=== PATIENT | female | born 1940 | race Caucasian/White ===

== ENCOUNTER 2021-04-18 11:59 | Inpatient (IN) | payer OTHER, SELFPAY ==
[~2021-04-18] VITALS: Ht 147.3 cm; Wt 39.9 kg
--- NOTE | 2021-04-18 11:59 | NUR ---
1150 BIBA ALS TO ER BED 10
--- NOTE | 2021-04-18 12:00 | NUR ---
80 Y/O F BIBA FROM HOME, PT A&OX4 STATES THAT SHE HAS BEEN HAVING AN INCREASE OF SOB, ANXIETY AND DYSPNEA FOR 3 DAYS. ALSO C/O LACK OF APPETITE AND STATES SHE HAS NOT BEEN ABLE TO EAT FOR 1 WEEK. ON SCENE, PT WAS 90% ON 4 L NC, [facility] SWITCHED TO CPAP AND GAVE ATROVENT BREATHING TX. PT REPORTS SOME RELIEF AFTER TX. DENIES SYCNOPE, FALLS, HEAD/NECK INJURIES, DYSURIA, N/V/D, ABD PAIN, HEMATURIA OR ANYONE SICK IN HOUSEHOLD AT THIS TIME. ON BIPAP FIO2 30% O2 SATURATION AT 95%. PMH: EMPHYSEMA, HOME OXYGEN 2L ALLERGY: DENIES
[2021-04-18 12:02] VITALS: BP 128/58
[2021-04-18] MEDS ORDERED: methylPREDNISolone SS 40 MG in WATER STERILE 1 ML IV ONE (12:05)
[2021-04-18] MEDS ORDERED: NACL 0.9% 1,000 ML IV ONE (12:05)
[2021-04-18] MEDS ORDERED: ALBUTEROL SULFATE/IPRATROPIU 3 ML SOL IH ONE (12:05)
[2021-04-18 12:06] VITALS: BP 121/63
[2021-04-18] MEDS ORDERED: WATER STERILE 10 ML MC ONE (12:09)
[2021-04-18] MEDS ORDERED: methylPREDNISolone SS 40 MG/ML VIAL ONE (12:09)
--- NOTE | 2021-04-18 12:11 | NUR ---
PT CAME IN BY AMBULANCE ON BIPAP. PLACED PT ON BIPAP WITH CHARTED SETTINGS. SKIN INTACT. PT AWAKE AND ALERT. PT IS MILD DISTRESS AND SOB. MD ROMAN AT BEDSIDE. BIPAP CONNECTED TO RED OUTLET. ALARMS AUDIBLE. AMBU BAG AT BEDSIDE. WILL CONTINUE TO MONITOR PATIENT.
[2021-04-18 12:18] LABS: BASOPHILS % (AUTO) 0.4 % (0.0-2.0); EOSINOPHILS % (AUTO) 0.2 % (0.0-4.0); HEMATOCRIT 36.6 % (36-48); HEMOGLOBIN 12.1 g/dL (12.0-16.0); LYMPHOCYTES # (AUTO) 0.7 K/uL (2.5-16.5); LYMPHOCYTES % (AUTO) 7.2 % (20.5-51.1); MEAN CORPUSCULAR HEMOGLOBIN 29 pg (27-31); MEAN CORPUSCULAR HGB CONC 33 g/dL (33-37); MEAN CORPUSCULAR VOLUME 88.8 fL (80-94); MONOCYTES # (AUTO) 0.5 K/uL (0.8-1.0); MONOCYTES % (AUTO) 5.3 % (1.7-9.3); NEUTROPHILS # (AUTO) 8.7 K/uL (1.8-7.7); NEUTROPHILS % (AUTO) 86.9 % (42.2-75.2); PLATELET COUNT (AUTO) 576 K/uL (140-450); RED BLOOD CELL COUNT(AUTO) 4.12 MIL/uL (4.20-5.40); RED CELL DISTRIBUTION WIDTH 14.2 % (11.6-13.7)
--- NOTE | 2021-04-18 12:22 | NUR ---
RT AT BEDSIDE
[2021-04-18 12:32] LABS: ANION GAP 11.6 (8-16); CARBON DIOXIDE 31.8 mmol/L (21-32); CHLORIDE 88 mmol/L (98-107); CREATININE 0.9 mg/dL (0.6-1.3); GLUCOSE 122 mg/dL (74-106); POTASSIUM 4.4 mmol/L (3.5-5.1); SODIUM SERUM 127 mmol/L (136-145); UREA NITROGEN, BLOOD 13 mg/dL (7-18)
--- NOTE | 2021-04-18 12:33 | NUR ---
PT PLACED ON BEDPAN
--- NOTE | 2021-04-18 12:41 | NUR ---
XRAY AT BEDSIDE
--- NOTE | 2021-04-18 13:00 | NUR ---
PT'S ELINOR AGUILAR AT BEDSIDE
--- NOTE | 2021-04-18 13:00 | NUR ---
# 16 FR Urinary catheter inserted utilizing sterile technique. Immediate return of 30 ml YELLOW urine noted. Urine sample collected and sent to lab. Pt tolerated procedure WELL.
[2021-04-18] MEDS ORDERED: cefTRIAXone 1,000 MG VIAL ONE (13:31)
[2021-04-18 13:40] LABS: APPEARANCE,URINE CLEAR (CLEAR); BILIRUBIN,URINE NEGATIVE (NEGATIVE); BLOOD, URINE NEGATIVE (NEGATIVE); COLOR,URINE YELLOW (YELLOW); LEUKOCYTE ESTERASE ,URINE NEGATIVE (NEGATIVE); NITRITE, URINE NEGATIVE (NEGATIVE); UGLUCOSE NEGATIVE (NEGATIVE)
[2021-04-18] MEDS ORDERED: PRAV20TA5 PO (13:43)
[2021-04-18] MEDS ORDERED: ALEN70TA85 PO (13:43)
[2021-04-18] MEDS ORDERED: HYDR-3298 PO (13:43)
[2021-04-18] MEDS ORDERED: CHLO1CAP PO (13:43)
--- NOTE | 2021-04-18 14:32 | NUR ---
PT'S JENNI FLORES AT BEDSIDE
--- NOTE | 2021-04-18 14:32 | NUR ---
pt using bedside commode
--- NOTE | 2021-04-18 16:20 | NUR ---
PT'S ELINOR LANGLEY AT BEDSIDE
--- NOTE | 2021-04-18 16:30 | NUR ---
PT USING BEDSIDE COMMODE
[2021-04-18] MEDS ORDERED: ACETAMINOPHEN EXTRA STRENGTH 500 MG TAB PO SCH (17:40)
--- NOTE | 2021-04-18 17:40 | NUR ---
PT STATING BACK PAIN, REQUESTING FOR TYLENOL. WILL ADMINISTER TYLENOL PER DR LUNDBERG.
[2021-04-18] MEDS ORDERED: HYDROcodone/APAP 5/325 MG 1 TAB TAB PO PRN (17:45)
[2021-04-18] MEDS ORDERED: ACETAMINOPHEN 325 MG TAB PO PRN (17:45)
[2021-04-18] MEDS ORDERED: POTASSIUM CHLORIDE 10 MEQ TABER PO PRN (17:45)
[2021-04-18] MEDS ORDERED: MAG SULF 2000 MG/WATER PREMIX 50 ML IV PRN (17:45)
[2021-04-18] MEDS: AZITHROMYCIN 500 MG in DEXTROSE 5% 250 ML IV SCH (17:45)
[2021-04-18] MEDS ORDERED: MORPHINE SULFATE 4 MG/ML SYR IVP PRN (17:45)
[2021-04-18] MEDS ORDERED: ONDANSETRON 4 MG/2 ML VIAL IVP PRN (17:45)
--- NOTE | 2021-04-18 18:10 | NUR ---
Patient will be admitted to care of DR GERMAN. Admited to MED SURG. Will go to [id number]. Belongings list completed. Report to SHEELA MCGILL.
--- NOTE | 2021-04-18 18:15 | NUR ---
PATIENT AWAKE AND ALERT. NO ACUTE DISTRESS NOTED. VS STABLE. BP 142/72, HR 95. RR 20, TEMP 98.0, O2 97% 4L NC. NO ABNORMAL HEART SOUNDS HEARD. RHONCHI HEARD. BOWL SOUNDS HEARD IN ALL FOUR QUADRANTS. SKIN IS WARM, INTACT, DRY AND CLEAN TO TOUCH. PATIENT ADMITTED FOR COPD EXACERBATION. IV TO RAC 20G. EDUCATED PATIENT TO ROOM SURROUNDINGS. MRSA SWAB COLLECTED. NIECE AT BEDSIDE. CALL LIGHT WITHIN REACH. ALL SAFETY MEASURES IN PLACE. WILL CONTINUE TO MONITOR
--- NOTE | 2021-04-18 19:27 | NUR ---
ENDORSED TO PIPE LINER NURSE FOR CONTINUITY OF CARE. PATIENT STABLE.
[2021-04-18 20:00] VITALS: BP 148/84
--- NOTE | 2021-04-18 20:00 | NUR ---
NURSE REPORT REPORT OBTAINED FROM [facility] NURSE COKER AND THIS NURSE ASSUMED CARE OF PATIENT. VSS. AFEB. O2 4 L/MIN PER NASAL CANNULA. O2 SAT 96%.
[2021-04-18] MEDS: ALBUTEROL SULFATE/IPRATROPIU 3 ML SOL IH SCH (20:08)
[2021-04-18] MEDS: methylPREDNISolone SS 40 MG/ML VIAL IVP SCH (21:21)
--- NOTE | 2021-04-18 22:00 | NUR ---
NURSE NOTES PATIENT HAD SL IN R AC, AND THIS NURSE TRIED TO GIVE THE SOLU-MEDROL THRU THE SL. OCCLUDED. OPSITE REMOVED AND STILL OCCLUDED WHEN TRIED TO FLUSH SL. THE CATHETER WAS BEING REMOVED, IT HAD BENTS ON CATHETER THAT MIGHT HAD BEEN CAUSING OCCLUSION. THIS NURSE TRIED 2 TIMES TO START SL, AND OTHER NURSE JEREMY TRIED ONCE, AND CHARGED NURSE TRIED 2 X. ABLE TO GET IN THE LEFT ARM.PATIENT WOULD HAVE
[2021-04-19] MEDS: ALBUTEROL SULFATE/IPRATROPIU 3 ML SOL IH SCH ×4 (02:11→19:39)
--- NOTE | 2021-04-19 02:30 | NUR ---
NURSE NOTES PATIENT GETTING OOB TO BSC BY HERSELF. HAD LARGE SOFT STOOL. VOIDED SMALL AMOUNT.
[2021-04-19 02:50] VITALS: BP 122/62
[2021-04-19 04:00] VITALS: BP 110/54
[2021-04-19] MEDS ORDERED: chlordiazePOXIDE 25 MG CAP PO PRN (04:45)
--- NOTE | 2021-04-19 05:00 | NUR ---
NURSE NOTES VS TAKEN. BP 110/54. GIVEN ANOTHER DOSE OF SOLU-MEDROL.
[2021-04-19] MEDS: methylPREDNISolone SS 40 MG/ML VIAL IVP SCH ×3 (05:24→21:00)
[2021-04-19 06:45] LABS: ANION GAP 13.1 (8-16); CARBON DIOXIDE 28.2 mmol/L (21-32); CHLORIDE 93 mmol/L (98-107); CREATININE 0.7 mg/dL (0.6-1.3); GLUCOSE 150 mg/dL (74-106); POTASSIUM 4.3 mmol/L (3.5-5.1); SODIUM SERUM 130 mmol/L (136-145); UREA NITROGEN, BLOOD 11 mg/dL (7-18)
[2021-04-19 08:00] VITALS: BP 134/69
--- NOTE | 2021-04-19 08:10 | NUR ---
NURSE REPORT REPORT GIVEN TO DAYSHIFT NURSE LULI TO ASSUME CARE OF PATIENT. SBAR GIVEN. ALL QUESTIONS ANSWERED. PADILLA PRECIADO RN
--- NOTE | 2021-04-19 08:12 | NUR ---
PATIENT HAS BEEN SCREENED AND CATEGORIZED HIGH NUTRITION RISK. PATIENT WILL BE SEEN WITHIN 1-2 DAYS OF ADMISSION. 04/19/21 04/20/[address]
--- NOTE | 2021-04-19 08:15 | NUR ---
RECEIVED BEDSIDE REPORT FROM NIGHTSHIFT NURSE. PATIENT SUPINE IN BED, HOB 30 DEGREES, WITH RT AT BEDSIDE ADMINISTERING BREATHING TREATMENT. PATIENT SEEMS ANXIOUS, NOW RELAXED AND CALM THROUGH GUIDED RELAXATION BY RN AND RT. PATIENT AWAKE AND ALERT, STATES SHE IS MORE RELAXED AND WILL WATCH TV NOW, FOCUSING ON BREATHING. LAC 20G SL. BED IN LOW POSITION, CALL LIGHT WITHIN REACH. SAFETY MEASURES IN PLACE.
[2021-04-19 08:17] LABS: HEMATOCRIT 32.3 % (36-48); HEMOGLOBIN 10.6 g/dL (12.0-16.0); LYMPHOCYTES # (AUTO) 0.3 K/uL (2.5-16.5); LYMPHOCYTES % (AUTO) 2.6 % (20.5-51.1); MEAN CORPUSCULAR HEMOGLOBIN 29 pg (27-31); MEAN CORPUSCULAR HGB CONC 33 g/dL (33-37); MEAN CORPUSCULAR VOLUME 88.2 fL (80-94); MONOCYTES # (AUTO) 0.2 K/uL (0.8-1.0); MONOCYTES % (AUTO) 1.7 % (1.7-9.3); NEUTROPHILS # (AUTO) 9.3 K/uL (1.8-7.7); NEUTROPHILS % (AUTO) 95.7 % (42.2-75.2); PLATELET COUNT (AUTO) 496 K/uL (140-450); RED BLOOD CELL COUNT(AUTO) 3.66 MIL/uL (4.20-5.40); RED CELL DISTRIBUTION WIDTH 14.4 % (11.6-13.7); WHITE BLOOD COUNT (AUTO) 9.7 K/uL (4.8-10.8)
[2021-04-19] MEDS: ENOXAPARIN 40 MG/0.4 ML SYR SUBQ SCH (09:00)
--- NOTE | 2021-04-19 11:55 | NUR ---
PATIENT WATCHING TV AT THIS TIME. DENIES PAIN. ALL NEEDS MET. NO SIGNS OF ACUTE DISTRESS NOTED.
--- NOTE | 2021-04-19 12:22 | NUR ---
04/19/21 RD INITIAL ASSESSMENT COMPLETED PLEASE REFER TO NUTRITION ASSESSMENT UNDER CARE ACTIVITY FOR ESTIMATED NUTRITIONAL NEEDS. 1. RECOMMEND REGULAR DIET 2. RECOMMEND ENSURE TID 3. RD TO F/U IN 2-3 DAYS, HIGH RISK BRUNILDA SHOOK RD
[2021-04-19 16:00] VITALS: BP 124/55
--- NOTE | 2021-04-19 16:02 | NUR ---
PATIENT IN BED WITH DAUGHTER AT BEDSIDE. DENIES PAIN, ALL NEEDS MET, NO SIGNS OF DISTRESS NOTED.
[2021-04-19] MEDS: AZITHROMYCIN 500 MG in DEXTROSE 5% 250 ML IV SCH (17:57)
--- NOTE | 2021-04-19 19:30 | NUR ---
ENDORSED TO WOOD ROUTER NURSE FOR CONTINUITY OF CARE. PATIENT CO ITCHING AT INFUSION SITE WITH ZITHROMAX INFUSION, DR GERMAN AWARE, AWAITING ORDERS. WOOD ROUTER NURSE AWARE AND WILL FOLLOW UP ON ORDERS.
--- NOTE | 2021-04-19 19:30 | NUR ---
NURSE REPORT REPORT OBTAINED FROM DAY NURSE LULI AND THIS NURSE ASSUMED CARE OF PATIENT. LULI HAD SENT TEXT TO DR GERMAN ABOUT PATIENT C/O ITCHING WHEN IV ANTIBIOTIC WAS GIVEN DURING THE DAYSHIFT.
[2021-04-19 20:00] VITALS: BP 150/74
--- NOTE | 2021-04-19 21:00 | NUR ---
NURSE NOTES VSS. AFEB. BP 150/74. O2 SAT 99% WITH 3 L/MIN PER NASAL CANNULA. PT REFUSED TO HAVE ANYTHING IN HER SL, SAYINGSHE HAD A REACTION TO THE MED GIVEN EARLIER.
--- NOTE | 2021-04-19 21:45 | NUR ---
NURSE NOTES THIS NURSE HAS BEEN TRYING TO GET IN TOUCH WITH DR GERMAN, SENDING TEXTS, BUT NO RESPONSE ABOUT THE PATIENT COMPLAINT ABOUT ITCHING AROUND THE IV SIGHT. DR ASHBY ORDERED TO DC THE ZITHROMAX AND GIVE BENADRYL 25 MG PO FOR ITCHING.
[2021-04-20] MEDS: ALBUTEROL SULFATE/IPRATROPIU 3 ML SOL IH SCH ×3 (00:24→13:27)
[2021-04-20 04:00] VITALS: BP 119/54
--- NOTE | 2021-04-20 05:00 | NUR ---
NURSE NOTES VSS. TEMP 97.3, HR 102, O2 SAT 94% WITH 3 L/MIN PER NASAL CANNULA. GET OOB TO BSC AND VOIDING WELL. RT TREATMENT ORDERED. DR DUMAS WAS CALLED DURING THE NIGHT AND HE HAD DC'D THE ZITHROMAX AND ORDERED BENADRYL IF PATIENT NEEDS IT. PATIENT REFUSED. NO FURTHER C/O ITCHING.
[2021-04-20 06:11] LABS: BASOPHILS % (AUTO) 0.1 % (0.0-2.0); HEMATOCRIT 29.9 % (36-48); HEMOGLOBIN 9.9 g/dL (12.0-16.0); LYMPHOCYTES # (AUTO) 0.9 K/uL (2.5-16.5); MEAN CORPUSCULAR HEMOGLOBIN 29 pg (27-31); MEAN CORPUSCULAR HGB CONC 33 g/dL (33-37); MEAN CORPUSCULAR VOLUME 87.5 fL (80-94); MONOCYTES # (AUTO) 1.1 K/uL (0.8-1.0); MONOCYTES % (AUTO) 6.6 % (1.7-9.3); NEUTROPHILS # (AUTO) 14.5 K/uL (1.8-7.7); PLATELET COUNT (AUTO) 500 K/uL (140-450); RED BLOOD CELL COUNT(AUTO) 3.42 MIL/uL (4.20-5.40); RED CELL DISTRIBUTION WIDTH 14.2 % (11.6-13.7); WHITE BLOOD COUNT (AUTO) 16.5 K/uL (4.8-10.8)
[2021-04-20 06:22] LABS: ANION GAP 6.5 (8-16); CARBON DIOXIDE 33.2 mmol/L (21-32); CHLORIDE 96 mmol/L (98-107); CREATININE 0.7 mg/dL (0.6-1.3); GLUCOSE 109 mg/dL (74-106); POTASSIUM 3.7 mmol/L (3.5-5.1); SODIUM SERUM 132 mmol/L (136-145); UREA NITROGEN, BLOOD 15 mg/dL (7-18)
[2021-04-20 07:02] LABS: LYMPHOCYTES % (AUTO) 5.2 % (20.5-51.1); NEUTROPHILS % (AUTO) 88.1 % (42.2-75.2)
[2021-04-20 08:00] VITALS: BP 132/63
[2021-04-20] MEDS: methylPREDNISolone SS 40 MG/ML VIAL IVP SCH (09:15)
[2021-04-20] MEDS: ENOXAPARIN 40 MG/0.4 ML SYR SUBQ SCH (09:28)
--- NOTE | 2021-04-20 09:30 | NUR ---
NURSE NOTES VSS. AFEB. DAUGHTER AT BEDSIDE. HR 109. PATIENT GETS ANXIOUS AND GIVEN LIBRIUM TO HELP PATIENT RELAX. DR GERMAN CAME IN AND STATED PATIENT CAN BE DC'D HOME, AND HE W3AS TOLD THAT PATIENT REFUSED THE ATB AND HAD POSSIBLE REACTION
[2021-04-20] MEDS ORDERED: predniSONE 20 MG TAB PO SCH (10:29)
--- NOTE | 2021-04-20 10:42 | NUR ---
NURSE REPORT AND ENDORSEMENT REPORT GIVEN TO BLAS TO ASSUME CARE OF PATIENT
--- NOTE | 2021-04-20 10:42 | NUR ---
RECEIVED REPORT FROM DEAF TEACHER NURSE. PT STABLE. NO S/S OF DISTRESS. CALL LIGHT IN REACH. ALL SAFETY MEASURES IN PLACE.
--- NOTE | 2021-04-20 11:12 | NUR ---
SPOKE TO PT AND FAMILY. MD ORDERED PT AND RT EVAL. PT WAS INFORMED BY DR. PIMENTEL ABOUT DISCHARGE PLANS TODAY. AWAITING FURTHER ORDERS. NO S/S OF DISTRESS. CALL LIGHT IN REACH. ALL SAFETY MEASURES IN PLACE.
[2021-04-20] MEDS ORDERED: PRED20TA5 PO (14:10)
[2021-04-20] MEDS ORDERED: FLUT1BLS IH (14:10)
[2021-04-20] MEDS ORDERED: ALBU90AE IH (14:11)
--- NOTE | 2021-04-20 14:45 | NUR ---
SPOKE TO PT AND FAMILY ABOUT DISCHARGE PLANS. PT VERBALIZED UNDERSTANDING. PT TOLERATED FOOD AND BEVERAGES WELL. NO S/S OF DISTRESS. CALL LIGHT IN REACH. ALL SAFETY MEASURES IN PLACE.
--- NOTE | 2021-04-20 15:53 | NUR ---
PATIENT DISCHARGED. EDUCATED ON DC INSTRUCTIONS. PT VERBALIZED UNDERSTANDING AND SIGNED. IV REMOVED, CANULA INTACT. FLU VACCINE ADMINISTERED. ID BAND REMOVED. PT HOME O2 ATTACHED AND RUNNING. NO S/S OF DISTRESS. WHEELED TO VEHICLE WITH FAMILY.
[2021-04-20] MEDS ORDERED: FLU VACCINE QS2021-22 0.5 ML SYR IMVAC ONE (16:00)
[2021-04-21] MEDS ORDERED: predniSONE 20 MG TAB PO SCH (09:00)
--- NOTE | 2021-04-21 14:32 | NUR ---
DC PLANNING: ORDER RECEIVED POST DISCHARGE FOR HOME HEALTH FOR P.T. [facility] MARTIN AT [facility] WHO STATES THEY WILL SET UP THE HOME HEALTH. CM WILL FOLLOW NEEDED.
== END 2021-04-20 16:13 | disposition home health service (06) | DRG 189 ==
LOC: MED 11:59 → MTU 17:49
PROVIDERS: ADMIT Student in an Organized Health Care Education/Training Program; ATTEND Student in an Organized Health Care Education/Training Program
DX: J96.21 Acute and chronic respiratory failure with hypoxia (principal); E43 Unspecified severe protein-calorie malnutrition; E87.1 Hypo-osmolality and hyponatremia; Z68.1 Body mass index [BMI] 19.9 or less, adult; J43.9 Emphysema, unspecified; J96.22 Acute and chronic respiratory failure with hypercapnia; Z20.822 Contact with and (suspected) exposure to COVID-19; I10 Essential (primary) hypertension; F17.210 Nicotine dependence, cigarettes, uncomplicated; R53.81 Other malaise; F41.9 Anxiety disorder, unspecified; Z99.81 Dependence on supplemental oxygen
CPT/HCPCS: 36415; 36600; 71045; 80048; 81003; 82803; 83605; 83735; 83880; 84484; 85025; 87040; 87804; 93005; 94640; 94660; 96361; 96365; 96375; 99285; J0456; J0696; J1650; J2920; J7060; Q0092